=== PATIENT | female | born 1945 | race Caucasian/White ===

== ENCOUNTER 2024-12-28 10:14 | Outpatient (AMB) | payer MEDICARE, BC, SELFPAY ==
--- NOTE | 2024-12-28 10:24 | HO.NEPHOV ---
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 She has history of neurogenic bladder, hearing loss as well as congestive heart failure. She has been on losartan, carvedilol, amlodipine among other regular medications. Her blood pressure typically is well controlled on current medication regimen. She does not take any excessive nonsteroidal anti-inflammatories. She denies chest pain, shortness of breath, proximal nocturnal dyspnea, orthopnea, pedal edema, orthostatic symptoms, hypercalcemia, renal calculi, new bone pain, sinusitis, sore throat. She is compliant with her medications. Her last serum creatinine was 1.41. She has H/O PAO during [place] [facility] [place] with GFR dropping to close to 20 % which has improved since. She has history of hearing deficits but no history of hematuria. She has been on diuretics which has been D/Warren. She has no history of ESRD or renal transplant in her family. [facility] Medical History (Updated 12/28/24 @ 10:29 by Prasad Bustillo MD) Essential tremor Morbid obesity Hearing loss Insomnia Depression Generalized anxiety disorder Congestive heart failure Neuromuscular dysfunction of bladder Mixed hyperlipidemia Hypertension Surgical History (Updated 12/26/24 @ 11:29 by Brenda Epps MA) History of back surgery Family History Father Cancer Social History Alcohol intake: never Patient Tobacco Use Status: Never used Tobacco Review of Systems Const All systems reviewed & are unremarkable except as noted in HPI and below Physical Exam Const General: comfortable and no acute distress Orientation/consciousness: patient oriented x3 HEENT Head: Yes normocephalic Mouth: Normal oral and palatal mucosa present Eyes EOM: EOMs intact bilaterally Neck Neck: Yes supple Resp Auscultation: clear to auscultation bilaterally Cardio Jugular venous distension: no JVD Rate: regular rate GI Palpation (GI): Soft to palpation Auscultation: normal bowel sounds General: Yes no CVA tenderness Back/Spine/Pelvis Back: no CVA tenderness Skin General skin exam: no rashes or lesions noted Neuro General: patient oriented x3 and moves all extremities Extrem General: Yes no pedal edema Assessment & Plan Assessment & Plan (1) CKD (chronic kidney disease) stage 3, GFR 30-59 ml/min: Code(s): N18.30 - Chronic kidney disease, stage 3 unspecified Category: Medical Qualifiers: Chronic kidney disease stage 3 subtype: stage 3b (GFR 30-44) Qualified Code(s): N18.32 - Chronic kidney disease, stage 3b (2) Hypertension: Code(s): I10 - Essential (primary) hypertension Category: Medical Qualifiers: Hypertension type: primary hypertension Qualified Code(s): I10 - Essential (primary) hypertension Plan Mary Grace has chronic kidney disease most likely due to vascular disease, H/O ATN with loss of renal function along with age related loss of renal function as well . Current serum creatinine is 1.41. Blood pressure has been at goal. She is on ARB. Her diuretics has been discontinued. We should get her off ARB and Amlodipine and start her on hydralazine and Imdur. She does not take excessive nonsteroidal anti-inflammatories. She would have been a great candidate for SGLT 2 inhibitor but we would not start her on it now given H/O recurrent infections with altered mental status . I ordered CKD workup. I did not make any medication changes today. All questions answered and follow-up appointment given. Further management is pending evolving data. Orders: Orders Calcium 3 Months I10 - Essential (primary) hypertension, N18.32 - Chronic kidney disease, stage 3b Blood Urea Nitrogen 3 Months I10 - Essential (primary) hypertension, N18.32 - Chronic kidney disease, stage 3b Immunofixation Pnl, Serum 3 Months I10 - Essential (primary) hypertension, N18.32 - Chronic kidney disease, stage 3b Complete Blood Count Auto Diff 3 Months I10 - Essential (primary) hypertension, N18.32 - Chronic kidney disease, stage 3b Electrolytes 3 Months I10 - Essential (primary) hypertension, N18.32 - Chronic kidney disease, stage 3b Creatinine 3 Months I10 - Essential (primary) hypertension, N18.32 - Chronic kidney disease, stage 3b Protein Creatinine Ratio, Ur 3 Months I10 - Essential (primary) hypertension, N18.32 - Chronic kidney disease, stage 3b Parathyroid Hormone Intact 3 Months I10 - Essential (primary) hypertension, N18.32 - Chronic kidney disease, stage 3b Vitamin D 25-OH Total 3 Months I10 - Essential (primary) hypertension, N18.32 - Chronic kidney disease, stage 3b Coding Level of Care Code New Pt Level 4 (35580) Diagnoses Stage 3b chronic kidney disease N18.32 Chronic kidney disease stage 3 subtype: stage 3b (GFR 30-44) Primary hypertension I10 Hypertension type: primary hypertension
[2024-12-28 10:28] VITALS: BP 158/70; PULSE 45; O2SAT 97; BMI 41.4
--- OUTSIDE RECORDS SUMMARY | 2024-12-28 12:35 | XMS_ITS | Clinical Summary ---
Author Organization [facility] Facility Address [address] [place] [address] Care Team Providers Care Mental Health Program Manager Name Role Phone Unavailable Primary Care Provider Unavailabl e Social History Tobacco Use Types Packs/Day Years Used Date Smoking Tobacco: Never Assessed Comments Unknown Sex and Gender Information Value Date Recorded Sex Assigned at Not on file Legal Sex Female 2:00 PM EDT Gender Identity Not on file Sexual Orientation Not on file Plan of Treatment Health Maintenance Due Date Last Done Comments Pneumococcal Vaccine: 50+ Ye ars (1 of 2 - PCV) 02/24/1964 Diabetes: Hemoglobin A1C 12/09/2023 Diabetes: Ophthalmology Exam 12/09/2023 Diabetes: Pedal Pulse Checked 12/09/2023 Diabetes: Sensory Foot Exam 12/09/2023 Diabetes: Visual Foot Exam 12/09/2023 Influenza Vaccine (#1) 2024 Hepatitis B Vaccine Aged Out No longe r eligible based on patient's age to complete this topic Insurance Medicare [facility]
== END 2024-12-28 11:00 | disposition home or self-care (01) ==
LOC: HO.HKAS 10:15
PROVIDERS: PCP Hospitalist; Referring Provider Hospitalist; Visit Provider Internal Medicine Nephrology
DX: N18.32 Chronic kidney disease, stage 3b (principal); I10 Essential (primary) hypertension
CPT/HCPCS: 99204

== ENCOUNTER → 2024-12-28 10:14 | Outpatient (BNVA) | payer MEDICARE, BC, SELFPAY | PROVIDERS: PCP Hospitalist; Referring Provider Hospitalist; Visit Provider Internal Medicine Nephrology | DX: I12.9 Hypertensive chronic kidney disease with stage 1 through stage 4 chronic kidney disease, or unspecified chronic kidney disease (principal); N18.32 Chronic kidney disease, stage 3b; E78.2 Mixed hyperlipidemia; E66.01 Morbid (severe) obesity due to excess calories; Z68.41 Body mass index [BMI] 40.0-44.9, adult | CPT/HCPCS: 99202 ==